=== PATIENT | female | born 1935 | race Caucasian/White ===

== ENCOUNTER 2017-06-25 14:20 | Emergency (ER) | payer MEDICARE, OTHER ==
[~2017-06-25] VITALS: Ht 157.5 cm; Wt 90.0 kg
[~2017-06-25 14:20] MED LIST: ACIDOPHILUS1 CAP PO; AMLODIPINE2.5 MG PO; ANTI-FUNGAL12 TOP; ARICEPT PO; ARICEPT10 MG PO; ASPIRIN 81 LOW81 MG PO; BAYER LOW81 MG OR; CEPH500C57 OR; CRESTOR10 MG PO; CRESTOR20 MG PO; DARVOCET-N 100100 MG OR; DOXYCYCL HYC100 MG PO; EQ ASPIRIN LOW81 MG; FLEXERIL10 MG OR; KEFLEX500 MG PO; LEVOTHYROXIN125 MCG PO; LEVOTHYROXIN88 MC1 PO; MULTIVITAMI9 PO; NAMENDA10 M1 PO; NAMENDA10 MG PO; NAPROSYN500 MG OR; PEPCID20 MG PO; PLAVIX75 MG PO; SEROQUEL25 MG PO; SEROQUEL50 MG PO; SYNTHROID50 MCG OR; VALIUM2 MG PO; VICODIN ES1 TA1 PO; VICODIN ES1 TAB OR; [UNRECOGNIZED DRUG - OTHER]
[2017-06-25 15:19] LABS: INFLUENZA A NONE DETECTED (NONE DETECT); INFLUENZA B NONE DETECTED (NONE DETECT)
[2017-06-25 16:05] VITALS: BP 120/70
[2017-06-25] MEDS ORDERED: DOXYCYC MONO100 M2 PO (16:20)
== END 2017-06-25 16:10 | disposition home or self-care (01) ==
LOC: ED 14:20
PROVIDERS: Family Medicine
DX: J06.9 Acute upper respiratory infection, unspecified (principal); R05 Cough; R09.81 Nasal congestion

== ENCOUNTER 2018-01-11 15:11 | Observation (INO) | payer MEDICARE, OTHER ==
[~2018-01-11] VITALS: Ht 154.9 cm; Wt 97.4 kg
[~2018-01-11 15:11] MED LIST changes: +DOXYCYC MONO100 M2 PO
[2018-01-11 16:18] LABS: HEMATOCRIT 39.1 % (37.0-47.0); HEMOGLOBIN 12.3 g/dl (12.0-16.0); IMMATURE GRANULOCYTES 0.6 % (0.0-5.0); MEAN CELL VOLUME 89.3 fL CALC (80.0-100.0); MEAN CORPUSCULAR HGB 28.1 pG CALC (26.0-32.0); MEAN CORPUSCULAR HGB CONC 31.5 g/L CALC (32.0-36.0); NEUT# 5.17 thou/uL (2.00-7.15); RED BLOOD COUNT 4.38 mill/uL (4.20-5.60); RED CELL DISTRI WIDTH 15.8 % (11.5-15.5)
[2018-01-11 16:36] LABS: ALBUMIN 3.6 g/dL (3.2-5.0); ALKALINE PHOSPHATASE 63 u/l (38-126); ANION GAP 11 (6-22 (CALC)); BILIRUBIN, TOTAL 0.5 mg/dL (0.0-1.4); BUN 13 mg/dL (8-23); BUN/CREATININE RATIO 13 (12-20 (CALC)); CARBON DIOXIDE 30 mmol/l (22-30); CHLORIDE 103 mmol/l (95-108); GFR 53 ML/MIN (>=60 (CALC)); GFR FOR AFR.AMER. > 60 ML/MIN (>=60 (CALC)); POTASSIUM 4.7 mmol/l (3.5-5.1); SGPT/ALT 18 u/l (11-66); SODIUM 139 mmol/l (137-146); TOTAL PROTEIN 6.5 g/dL (6.3-8.2)
[2018-01-11 16:45] LABS: MYOGLOBIN 41 ng/mL (0 - 62); SGOT/AST 27 u/l (9-36)
[2018-01-11 17:24] LABS: URINE BILIRUBIN - DIPSTICK NEGATIVE (NEGATIVE); URINE BLOOD DIPSTICK NEGATIVE (NEGATIVE); URINE CLARITY CLEAR; URINE COLOR YELLOW; URINE GLUCOSE - DIPSTICK NEGATIVE (NEGATIVE); URINE KETONE NEGATIVE (NEGATIVE); URINE LEUK ESTERASE NEGATIVE (NEGATIVE); URINE NITRITE - DIPSTICK NEGATIVE (Negative); URINE PROTEIN - DIPSTICK NEGATIVE (NEG-TRACE); URINE UROBILINOGEN - DIPSTICK 0.2 E.U./dL (0.2)
[2018-01-11 18:40] VITALS: BP 122/82
[2018-01-12 04:50] VITALS: BP 125/65
[2018-01-12] MEDS ORDERED: ASPIRIN ADULT L81 M2 PO (06:46)
[2018-01-12 08:48] VITALS: BP 107/66
[2018-01-12 15:04] VITALS: BP 105/70
[2018-01-12 20:00] VITALS: BP 137/78
[2018-01-13 05:00] VITALS: BP 132/68
[2018-01-13 08:35] VITALS: BP 91/58
[2018-01-13 11:20] VITALS: BP 108/80; BP 133/78; BP 134/77
[2018-01-13] MEDS ORDERED: LIPITOR10 M1 PO ×2 (14:00→15:31)
[2018-01-13] MEDS ORDERED: ASPIRIN 81 LOW81 MG PO ×2 (14:00→15:31)
[2018-01-13] MEDS ORDERED: PLAVIX75 MG PO ×2 (14:01→15:30)
[2018-01-13] MEDS ORDERED: LEXAPRO10 MG PO ×2 (14:01→15:31)
[2018-01-13] MEDS ORDERED: LEVOTHYROXIN50 MC1 PO ×2 (14:01→15:31)
[2018-01-13] MEDS ORDERED: NORCO1 TA2 PO (14:02)
[2018-01-13] MEDS ORDERED: TRAMADOL HYDROC50 MG PO (15:33)
[2018-01-13 15:44] VITALS: BP 104/64
[2018-01-13 16:46] LABS: CHOLESTEROL HDL RATIO 4.3 (<4.4 (CALC))
[2018-01-13 20:12] VITALS: BP 110/71
== END 2018-01-13 21:15 | disposition home health service (06) ==
LOC: ED 15:11 → ED-I 17:29 → ED 17:50 → MS2 17:51
PROVIDERS: Emergency Medicine; Nurse Practitioner Family; ADMIT Internal Medicine; ATTEND Internal Medicine
DX: M54.41 Lumbago with sciatica, right side (principal); F32.9 Major depressive disorder, single episode, unspecified; E78.5 Hyperlipidemia, unspecified; I73.9 Peripheral vascular disease, unspecified; E03.9 Hypothyroidism, unspecified; I12.9 Hypertensive chronic kidney disease with stage 1 through stage 4 chronic kidney disease, or unspecified chronic kidney disease; N18.3 Chronic kidney disease, stage 3 (moderate); F03.90 Unspecified dementia, unspecified severity, without behavioral disturbance, psychotic disturbance, mood disturbance, and anxiety; I65.23 Occlusion and stenosis of bilateral carotid arteries; J44.9 Chronic obstructive pulmonary disease, unspecified; Z96.643 Presence of artificial hip joint, bilateral; Z95.1 Presence of aortocoronary bypass graft; Z89.422 Acquired absence of other left toe(s); Z95.820 Peripheral vascular angioplasty status with implants and grafts; Z87.891 Personal history of nicotine dependence; Z79.02 Long term (current) use of antithrombotics/antiplatelets; Z91.14 Patient's other noncompliance with medication regimen

== ENCOUNTER 2018-02-28 10:07 | Observation (INO) | payer MEDICARE, OTHER ==
[2018-02-28] VITALS (10 sets, daily range): BP systolic 98–184; BP diastolic 69–135
[~2018-02-28] VITALS: Ht 154.9 cm; Wt 102.0 kg
[~2018-02-28 10:07] MED LIST changes: +ASPIRIN ADULT L81 M2 PO; +LEVOTHYROXIN50 MC1 PO; +LEXAPRO10 MG PO; +LIPITOR10 M1 PO; +NORCO1 TA2 PO; +TRAMADOL HYDROC50 MG PO
--- NOTE | 2018-02-28 10:07 | NUR ---
PT TO ROOM 14 VIA EMS. ICE PACK TO HEAD.
[2018-02-28 11:26] LABS: HEMATOCRIT 42.3 % (37.0-47.0); IMMATURE GRANULOCYTES 0.4 % (0.0-5.0); MEAN CELL VOLUME 92.2 fL CALC (80.0-100.0); MEAN CORPUSCULAR HGB 28.3 pG CALC (26.0-32.0); MEAN CORPUSCULAR HGB CONC 30.7 g/L CALC (32.0-36.0); NEUT# 5.87 thou/uL (2.00-7.15); RED BLOOD COUNT 4.59 mill/uL (4.20-5.60); RED CELL DISTRI WIDTH 16.4 % (11.5-15.5)
[2018-02-28 11:36] LABS: ANION GAP 12 (6-22 (CALC)); BUN 16 mg/dL (8-23); BUN/CREATININE RATIO 16 (12-20 (CALC)); CARBON DIOXIDE 29 mmol/l (22-30); CHLORIDE 105 mmol/l (95-108); GFR 53 ML/MIN (>=60 (CALC)); GFR FOR AFR.AMER. > 60 ML/MIN (>=60 (CALC)); POTASSIUM 4.4 mmol/l (3.5-5.1); SODIUM 142 mmol/l (137-146)
[2018-02-28] MEDS ORDERED: NAMENDA10 MG PO (11:40)
--- NOTE | 2018-02-28 11:44 | NUR ---
PT PROVIDED MEDS FOR PAIN ORDERED, CONTINUES TO SAY THAT HER HEAD IS THROBBING, FEELS LIKE IT WILL BLOW OFF. EDP IN ROOM FOR FURTHER EVALUATION. SECOND CT HEAD ORDERED.
--- NOTE | 2018-02-28 12:55 | NUR ---
RECVD REPORT FROM KM OCHOA.
--- NOTE | 2018-02-28 13:06 | NUR ---
PT ARRIVED FROM ER BY STRETCHER. PT ABLE TO TRANSFER WITH ASSISTANCE TO ICU BED. PT VERY VOCAL ABOUT PAIN TO HEAD AND IT "FEELS LIKE SOMEONE IS PULLING OUT HER HAIR". DR BREWER & SON, RACHID, @BEDSIDE. RACHID STATES SISTER, PANCHO, KNOWS ALL ABOUT PTS MEDICAL HISTORY. SHE CAN BE REACHED AT [phone]
--- NOTE | 2018-02-28 13:16 | NUR ---
PT AWARE OF PENDING ADMISSION TO ICU FOR OBSERVATION. SON ACCOMPANIED PT TO UNIT. PT STATED PAIN LEVEL NOT SIGNIFICANTLY IMPROVED BY NUMEROUS PAIN MEDS THAT WERE GIVEN.
--- NOTE | 2018-02-28 13:17 | NUR ---
PT TAKEN TO IU 8 WITHOUT INCIDENT. REPORT WAS TO KERI Cesar RN.
--- NOTE | 2018-02-28 13:30 | NUR ---
PT A&Ox2 TO NAME & PLACE. PT CONTINUALLY TRYING TO CLIMB OUT OF BED. PT CONFUSED TO TIME. PT KEEPS ASKING "WHATS WRONG WITH HER", C/O PAIN TO RIGHT SIDE OF HEAD. SON @BEDSIDE STATES SHE ACTS SIMILAR AT HOME WITH CONFUSION. PT REPEATING HERSELF, NEEDS FREQUENT REDIRECTION.
--- NOTE | 2018-02-28 13:45 | NUR ---
PT STATES SHE TRIPPED GETTING OUT OF THE SHOWER THIS AM AND HIT HER HEAD ON WALL. DENIES LOC. DENIES DIZZINESS. DENIES VISION CHANGES. DENIES WEAKNESS OR NUMBNESS. EYES PERRLA @4. SPEECH CLEAR. STRONG MOVIE STAR. FULL ROM TO ALL EXTREMETIES. PT ALERT TO NAME & PLACE, "NO CLUE" TO TIME/DATE. PT HAS LARGE PURPLE HEMATOMA TO RIGHT FOREHEAD, STRETCHING BACK TO TOP OF HEAD. PULSES STRONG. NO EDEMA. ABD SOFT/NONTENDER/OBESE, ACTIVE BS. BREATING IS EVEN/UNLABORED, LUNG SOUNDS CLEAR. PT DENIES OTHER WOUNDS, NONE SEE ON PT. DENIES BURNING URINATION; HOWEVER, PT FREQUENTLY ASKS TO URINATE. PT FREQUENTLY REDIRECTED TO WHY SHE IS HERE, HEMATOMA TO HEAD, & NOT TO CLIMB OUT OF BED. PT ON CARDIAC/BP/O2 MONITOR. CALLBELL W/IN REACH.
--- NOTE | 2018-02-28 14:09 | NUR ---
LAURA, FROM IV THERAPY, CALLED FOR ASSISTANCE ESTABLISHING NEW IV SITE.
--- NOTE | 2018-02-28 14:20 | NUR ---
PT C/O FREQUENT URINATION. REFUSES PUREWICK. PT CONTINUES TO TRY TO CLIMB OUT OF BED, BED ALARM SET & CURTAINS OPEN FOR OBSERVATION. ESTABLISHED #20 IV IN LAC. RIGHT IV DC'D, TIP INTACT.
--- NOTE | 2018-02-28 14:52 | NUR ---
PT REFUSING BEDPAIN, REFUSING EXTERNAL PUREWICK, UP TO BSC WITH ASSISTANCE x2.
--- NOTE | 2018-02-28 15:17 | NUR ---
COLBY & LAXMI PLACED PUREWICK, SUCTION TO WALL CANISTER. PT LAYING ON LEFT SIDE. PT STATES NO ALLERGIES BUT ALLERGIES LISTED IN FILE.
--- NOTE | 2018-02-28 15:30 | NUR ---
DAUGHTER CONFIRMED MEDICINE ALLERGIES, STATING "DILAUDID WILL MAKE PT AGGRESSIVE AND UNCONTROLLABLE CRAZY". PT CONTINUES TO NEED CONSTANT REDIRECTION.
--- NOTE | 2018-02-28 15:57 | NUR ---
URINE COLLECTED. PT REMOVING BP CUFF & PULSE OX. CALMED DOWN FROM INITAL BEHAVIOR BUT STILL NEEDS FREQUENT REDIRECTION FOR WHY SHE'S HERE & THAT SHE NEEDS TO STAY BED.
[2018-02-28 16:08] LABS: URINE BILIRUBIN - DIPSTICK NEGATIVE (NEGATIVE); URINE BLOOD DIPSTICK NEGATIVE (NEGATIVE); URINE COLOR YELLOW; URINE GLUCOSE - DIPSTICK 250 mg/dL (NEGATIVE); URINE KETONE TRACE mg/dL (NEGATIVE); URINE LEUK ESTERASE NEGATIVE (Negative); URINE NITRITE - DIPSTICK NEGATIVE (Negative); URINE PH 7.5 (4.5-8.0); URINE PROTEIN - DIPSTICK NEGATIVE (NEG-TRACE); URINE UROBILINOGEN - DIPSTICK 0.2 E.U./dL (0.2)
[2018-02-28 16:10] LABS: URINE CLARITY CLEAR
--- NOTE | 2018-02-28 16:13 | NUR ---
N/V RESOLVED. SITTING IN ROOM WITH PT FOR CONSTANT OBSERVATION. PT CONTINUES TO REMOVE BP & PULSE OX AND TRIES TO CLIMB OUT OF BED. PT C/O HER "HEAD HURTS". AWARE. MAY HAVE MORE TYLENOL IN 45 MINS. JENNIFER PLACED UNDER PTS HEAD.
--- NOTE | 2018-02-28 16:45 | NUR ---
SON @BEDSIDE WITH PT. PT TALKATIVE, STATING SHES "GOING HOME TONIGHT". SON REDIRECTING PT.
--- NOTE | 2018-02-28 16:52 | NUR ---
SON UPDATED ON TEST RESULTS. STATES PT WAS HERE A COUPLE WEEKS AGO FOR POSSIBLE UTI BUT URINE WAS NEGATIVE. WHEN ASKED IF PT IS THIS CONFUSED AT HOME, SON STATES "SOMETIMES LIKE THIS, SOMETIMES WORSE, SOMETIMES BETTER".
--- NOTE | 2018-02-28 17:28 | NUR ---
SON CAME OUT OF ROOM TO TELL US SHE IS SLEEPING SO HE IS HEADING HOME. WHILE SON IS TALKING TO STAFF, PT PICKS HER HEAD UP, LOOKS AT US, THEN QUICKLY PUTS HER HEAD BACK DOWN TO PRETEND TO BE ASLEEP. AFTER SON WALKED IN TO SAY GOODBYE, PT OPENED ONE EYE TO SEE IF WE WERE WATCHING, THEN CLOSED IT AGAIN REAL QUICK. PT APPEARS CALM BUT CONTINUES TO REMOVE MEDICAL EQUIPMENT AND REQUIRES FREQUENT REDIRECTION.
--- NOTE | 2018-02-28 17:44 | NUR ---
DINNER TRAY PLACED ON TABLE NEXT TO PT. PT STATES "SHE DOESNT FEEL LIKE EATING RIGHT NOW". WILL CONTINUE TO MONITOR. NO NEW NEURO ABNORMALITIES SINCE ARRIVAL.
--- NOTE | 2018-02-28 18:32 | NUR ---
PT REFUSING TO KEEP ICE PACK ON RIGHT HEAD. BRUISING SPREADING TO RIGHT EYE. NO NEW NEURO CONCERNS SINCE ARRIVAL.
--- NOTE | 2018-02-28 18:50 | NUR ---
REPORT FROM Baldev GLYNN RN. ASSUMED PT. CARE.
--- NOTE | 2018-02-28 19:15 | NUR ---
PT. MOVED FROM ROOM #8 TO ROOM #4 ABLE TO VISUALIZE PATIENT MORE CLOSELY SHE HAS BEEN ATTEMPTING TO CLIMB OOB AND IS CONFUSED.
--- NOTE | 2018-02-28 20:20 | NUR ---
PT. REQUESTING THE PHONE BOOK AT THIS TIME. PT. STATES SHE NEEDS THE [place] PHONE BOOK. PT. INFORMED THAT SHE IS NOT IN [facility] AND THAT SHE IS IN [place]. REMAINS CONFUSED AND ORIENTED ONLY TO PERSON AT THIS TIME.
--- NOTE | 2018-02-28 21:15 | NUR ---
PT. MEDICATED PER PHYSICIAN ORDERS. WILL CONTINUE TO ASSESS.
--- NOTE | 2018-02-28 22:00 | NUR ---
PT. FOUND INCONTINENT OF URINE. PT. CLEANSED AND LINENS CHANGED AT THIS TIME. PUREWICK REPLACED BY Adrian SHANE RN. PT. DENIES COMPLAINTS OR NEEDS AT THIS TIME. REMAINS SINUS IN KIM 80-90'S. REMAINS WITH HEMATOMA TO RT. FOREHEAD/EYE. CALL LIGHT REMAINS WITHIN REACH. WILL CONTINUE TO MONITOR.
--- NOTE | 2018-02-28 23:29 | NUR ---
PT. RESTING IN BED WITH EYES CLOSED IN NO DISTRES. CALL LIGHT REMAINS WITHIN REACH. PT. REMAINS SINUS ON THE MONITOR WITH OCCASIONAL PVC'S. WILL CONTINUE TO ASSESS.
[2018-03-01] VITALS (8 sets, daily range): BP systolic 78–138; BP diastolic 46–74
--- NOTE | 2018-03-01 01:08 | NUR ---
PT. AWAKE, ALERT. REORIENTED TO SITUATION. BP CUFF REAPPLIED AT THIS TIME. PT. ASKING WHERE HER DOG IS. REMINDED THAT SHE IS IN THE HOSPITAL. STATES HER HEAD PAIN HAS IMPROVED. REMAINS WITH SWELLING/BRUISING AT THIS TIME. RESPS REMAIN EVEN AND UNLABORED. WILL CONTINUE TO MONITOR.
--- NOTE | 2018-03-01 02:25 | NUR ---
PT. AWAKE, ALERT. DENIES COMPLAINTS OF PAIN OR NEED. PULSE OX REPLACED AT THIS TIME PT. HAS PULLED OFF PROBE. REORIENTED TO SITUATION. CALL LIGHT REMAINS WITHIN REACH.
--- NOTE | 2018-03-01 04:00 | NUR ---
PT. CONTINUES TO REST IN BED IN NO DISTRESS. EYES CLOSED. RESPS EVEN AND UNLABORED. SKIN WARM AND DRY. CALL LIGHT REMAINS IN PLACE.
--- NOTE | 2018-03-01 05:32 | NUR ---
PUREWICK CHANGED AT THIS TIME. PT. TOLERATED WELL. PAPER TAPE APPLIED TO SUCTION TUBING OVER ABDOMEN TO HELP KEEP IN PLACE. PT. STATES WITH MILD PAIN TO HEAD AT THIS TIME. AWAKE, ALERT. REMAINS ORIENTED TO PERSON ONLY AT THIS TIME. CALL LIGHT REMAINS IN PLACE. NO DISTRESS.
--- NOTE | 2018-03-01 07:02 | NUR ---
RECVD REPORT FROM KM TAYLOR. PT SLEEPING IN BED.
--- NOTE | 2018-03-01 08:41 | NUR ---
CASE MANAGEMENT @BEDSIDE.
--- NOTE | 2018-03-01 08:49 | NUR ---
DR BREWER @BEDSIDE. PT A&Ox4 THIS AM. MD DISCUSSING POC. PT STATES SHE WILL GO HOME; HER SON IS STAYING WITH HER. FAMILY IS LOOKING INTO PLACING HER IN [place] IN [place].
--- NOTE | 2018-03-01 09:45 | NUR ---
PT SITTING IN BED, CALLING STAFF INTO ROOM, SO SHE "CAN GET UP" BC "SHE IS GOING HOME".
--- NOTE | 2018-03-01 11:25 | NUR ---
PT NOW CONFUSED. STATING DR TOLD HER SHE COULD GO HOME, FREQUENTLY TRYING TO GET OUT OF BED. PT REDIRECTED. LUNCH TRAY @BEDSIDE.
--- NOTE | 2018-03-01 12:10 | NUR ---
PT REMINDED, SON INFORMED OF PLAN OF CARE FOR TODAY. SON WORRIED BECAUSE PT STILL HAS THE BRUISE ON HER FACE/HEAD. EDUCATED SON ON BRUISING AND INFORMED HIM THAT SWELLING HAS GONE DOWN A SUBSTANTIAL AMOUNT SINCE LAST NIGHT. NO FURTHER QUESTIONS/CONCERNS
--- NOTE | 2018-03-01 13:16 | NUR ---
PT HAS BEEN TAMPERING WITH HER BP CUFF AGAIN TODAY. UNABLE TO ACCURATELY CHART V/S.
--- NOTE | 2018-03-01 13:49 | NUR ---
PT SLEEPING. NO S/S OF DISTRESS.
--- NOTE | 2018-03-01 15:08 | NUR ---
PT SLEEPING ON RIGHT SIDE. DISPO PENDING CT REVEIW BY .
--- NOTE | 2018-03-01 15:35 | NUR ---
SON NOTIFIED OF PENDING DC. "WILL BE HERE IN 10-15 MINS". IV DC'D, TIP INTACT, PRESSURE DRESSING APPLIED TO AREA.
--- NOTE | 2018-03-01 16:02 | NUR ---
ASSISTED PT IN DRESSING, PLACED IN WC. EDUCATED PT ON NOT TAKING BLOOD THINNERS (PLAVIX & ASA) UNTIL WEDNESDAY AND EDUCATED ON FALL PRECAUTIONS. WHEN SON ARRIVED, PT & SON EDUCATED ON FALL PRECAUTIONS AND ADVISED TO STOP TAKING PLAVIX & ASA UNTIL 03/04/18. VERBALIZED UNDERSTANDING OF INSTRUCTIONS. PT TAKEN DOWN BY WC IN STABLE CONDITION.
== END 2018-03-01 16:00 | disposition home or self-care (01) ==
LOC: ED 10:07 → ED-I 11:13 → ED 12:06 → ICU 12:07
PROVIDERS: Family Medicine; ADMIT Internal Medicine Nephrology; ATTEND Internal Medicine Nephrology
DX: S00.83XA Contusion of other part of head, initial encounter (principal); W01.0XXA Fall on same level from slipping, tripping and stumbling without subsequent striking against object, initial encounter; I12.9 Hypertensive chronic kidney disease with stage 1 through stage 4 chronic kidney disease, or unspecified chronic kidney disease; N18.3 Chronic kidney disease, stage 3 (moderate); J44.9 Chronic obstructive pulmonary disease, unspecified; I65.23 Occlusion and stenosis of bilateral carotid arteries; I25.10 Atherosclerotic heart disease of native coronary artery without angina pectoris; E03.9 Hypothyroidism, unspecified; F32.9 Major depressive disorder, single episode, unspecified; F03.90 Unspecified dementia, unspecified severity, without behavioral disturbance, psychotic disturbance, mood disturbance, and anxiety; I73.9 Peripheral vascular disease, unspecified; E78.5 Hyperlipidemia, unspecified; Y93.89 Activity, other specified; Y92.002 Bathroom of unspecified non-institutional (private) residence as the place of occurrence of the external cause; Z87.891 Personal history of nicotine dependence; Z95.820 Peripheral vascular angioplasty status with implants and grafts; Z95.1 Presence of aortocoronary bypass graft; Z96.643 Presence of artificial hip joint, bilateral; Z89.412 Acquired absence of left great toe; Z79.02 Long term (current) use of antithrombotics/antiplatelets

== ENCOUNTER 2018-03-16 20:47 | Emergency (ER) | payer MEDICARE, OTHER ==
[~2018-03-16] VITALS: Ht 154.9 cm; Wt 96.0 kg
[2018-03-16 23:59] VITALS: BP 101/52
== END 2018-03-17 00:04 | disposition home or self-care (01) ==
LOC: ED 20:47
DX: R58 Hemorrhage, not elsewhere classified (principal); Z48.00 Encounter for change or removal of nonsurgical wound dressing

== ENCOUNTER 2019-03-30 02:38 | Emergency (ER) | payer MEDICARE ==
[~2019-03-30] VITALS: Ht 154.9 cm; Wt 100.0 kg
[2019-03-30 03:11] LABS: HEMATOCRIT 43.4 % (37.0-47.0); HEMOGLOBIN 12.3 g/dl (12.0-16.0); MEAN CELL VOLUME 93.7 fL CALC (80.0-100.0); MEAN CORPUSCULAR HGB 26.6 pG CALC (26.0-32.0); MEAN CORPUSCULAR HGB CONC 28.3 g/L CALC (32.0-36.0); RED BLOOD COUNT 4.63 mill/uL (4.20-5.60); RED CELL DISTRI WIDTH 16.9 % (11.5-15.5)
[2019-03-30 03:17] LABS: IMMATURE GRANULOCYTES 7.8 % (0.0-5.0); PLATELET COUNT 260 thou/uL (130-400)
[2019-03-30 03:20] LABS: MANUAL DIFFERENTIAL YES
[2019-03-30 03:23] LABS: PROTHROMBIN TIME 10.6 SECONDS (9.0-12.5)
[2019-03-30 03:25] LABS: ALBUMIN 3.6 g/dL (3.2-5.0); BILIRUBIN, TOTAL 0.3 mg/dL (0.0-1.4); CREATININE 1.2 mg/dL (0.5-1.0); POTASSIUM 4.4 mmol/l (3.5-5.1); TOTAL PROTEIN 6.1 g/dL (6.3-8.2)
[2019-03-30 03:27] LABS: URINE BILIRUBIN - DIPSTICK NEGATIVE (NEGATIVE); URINE BLOOD DIPSTICK LARGE (NEGATIVE); URINE GLUCOSE - DIPSTICK >=1000 mg/dL (NEGATIVE); URINE KETONE NEGATIVE (NEGATIVE); URINE NITRITE - DIPSTICK NEGATIVE (Negative); URINE PROTEIN - DIPSTICK >=300 mg/dL (NEG-TRACE); URINE SPECIFIC GRAVITY >=1.030; URINE UROBILINOGEN - DIPSTICK 0.2 E.U./dL (0.2)
[2019-03-30 03:33] LABS: BAND 8 % (0-8); NUCLEATED RED BLOOD CELL 1 /100WBC (0-1)
[2019-03-30 03:37] LABS: URINE COLOR RED
[2019-03-30 03:41] LABS: URINE LEUK ESTERASE NEGATIVE (NEGATIVE)
[2019-03-30 03:42] LABS: URINE BACTERIA MODERATE hpf; URINE EPITHELIAL CELLS FEW EPI/hpf (0-FEW); URINE RBC TNTC RBC/hpf (0-5)
[2019-03-30 06:21] VITALS: BP 176/77
== END 2019-03-30 06:21 | disposition short-term general hospital (02) ==
LOC: ED 02:38
PROVIDERS: Emergency Medicine
PROC: 0BH17EZ Insertion of Endotracheal Airway into Trachea, Via Natural or Artificial Opening (ICD-10-PCS; principal; 2019-03-30)
PROC: 0T9B70Z Drainage of Bladder with Drainage Device, Via Natural or Artificial Opening (ICD-10-PCS; 2019-03-30)
DX: I46.9 Cardiac arrest, cause unspecified (principal); J81.0 Acute pulmonary edema; D72.829 Elevated white blood cell count, unspecified; J44.9 Chronic obstructive pulmonary disease, unspecified; I73.9 Peripheral vascular disease, unspecified; Z89.432 Acquired absence of left foot; Z95.1 Presence of aortocoronary bypass graft